=== PATIENT | female | born 1970 | race Caucasian/White ===

== ENCOUNTER 2017-08-26 15:51 | Outpatient (CLI) | payer BC, MEDICARE | END 2017-08-26 15:52 | disposition home or self-care (01) | LOC: BICMAMMO 15:51 | PROVIDERS: ATTEND Family Medicine | DX: Z12.31 Encounter for screening mammogram for malignant neoplasm of breast (principal) | CPT/HCPCS: 77063; 77067 ==

== ENCOUNTER 2018-05-08 16:14 | Emergency (ER) | payer BC, MEDICARE ==
[2018-05-08 18:33] LABS: #Basophils 0.1 thou/uL (0.0-0.2); #Eosinphils 0.2 thou/uL (0.0-0.7); #Lymphocytes 1.6 thou/uL (1.20-3.40); #Monocytes 0.3 thou/uL (0.11-0.59); #Neutrophils 2.4 thou/uL (1.40-6.50); %Basophils 2.2 % (0.0-1.0); %Eosinophils 3.3 % (0.0-10.0); %Lymphocytes 35.4 % (21.0-51.0); %Monocytes 6.5 % (0.0-10.0); %Neutrophils 52.6 % (42.0-75.0); Hemoglobin 15.7 g/dL (12.0-16.0); Mean Corpuscular HGB CONC 33.5 g/dL (32.0-36.0); Mean Corpuscular Volume 95.4 fL (78.0-98.0); Mean Platelet Volume 6.7 fL (7.4-10.4); Platelet Count 210 thou/uL (130-400); RBC Distribution Width 11.7 % (11.5-14.5); White Blood Cell (WBC) Count 4.6 thou/uL (4.8-10.8)
[2018-05-08 18:49] LABS: ALT (SGPT) 63 U/L (8-55); AST (SGOT) 118 U/L (5-34); Albumin 4.5 g/dL (3.5-5.0); Alkaline Phosphatase 97 U/L (40-150); Anion Gap 19 mmol/L (10-20); BUN (Urea Nitrogen) 6 mg/dL (7.0-18.7); Bilirubin, Total 0.7 mg/dL (0.2-1.2); Calc. Creatinine Clearance 0 mL/min (70-130); Calcium 9.3 mg/dL (7.8-10.44); Carbon Dioxide 22 mmol/L (22-29); Chloride 105 mmol/L (98-107); Estimated GFR-MDRD 67; Glucose 90 mg/dL (70-105); Potassium 4.3 mmol/L (3.5-5.1); Protein, Total 7.5 g/dL (6.0-8.3); Sodium 142 mmol/L (136-145)
[2018-05-08] MEDS ORDERED: Dexamethasone 4 mg/ml Vial ONE (19:24)
[2018-05-08] MEDS ORDERED: Ondansetron PF 4 MG/2 ML Vial ONE (19:25)
[2018-05-08] MEDS ORDERED: Ketorolac Tromethamine 30 MG/ML VIAL ONE (19:25)
== END 2018-05-08 20:30 | disposition home or self-care (01) ==
LOC: ERS 16:14
DX: J30.2 Other seasonal allergic rhinitis (principal); M25.50 Pain in unspecified joint; R11.0 Nausea; J45.909 Unspecified asthma, uncomplicated; F41.9 Anxiety disorder, unspecified; Z79.51 Long term (current) use of inhaled steroids
CPT/HCPCS: 80053; 85025; 85652; 86140; 87081; 87430; 96361; 96374; 96375; J1100; J1885; J2405

== ENCOUNTER 2018-05-09 21:57 | Emergency (ER) | payer BC, MEDICARE | END 2018-05-09 22:27 | disposition home or self-care (01) | LOC: ERS 21:57 | DX: J30.9 Allergic rhinitis, unspecified (principal) | CPT/HCPCS: 99281 ==

== ENCOUNTER 2018-05-11 14:12 | Emergency (ER) | payer BC, MEDICARE ==
[2018-05-11] MEDS ORDERED: Ondansetron ODT 4 MG TAB ONE (15:43)
--- NOTE | 2018-05-11 15:47 | CT ---
FCT brain noncontrast: 05/11/2018 HISTORY: 48-year-old female with altered mental status. Acute onset of confusion. FINDINGS: Ventricles are normal in size and configuration. No mass effect, midline shift, extra-axial fluid col lection, acute intra-axial hemorrhage, or acute extra-axial hemorrhage. IMPRESSION: No acute intracranial findings
[2018-05-11 16:32] LABS: ALT (SGPT) 69 U/L (8-55); AST (SGOT) 129 U/L (5-34); Acetaminophen Less than 6.0 mcg/mL (10.0-30.0); Albumin 4.4 g/dL (3.5-5.0); Alcohol 285 mg/dL (Less than 10); Alkaline Phosphatase 87 U/L (40-150); Anion Gap 20 mmol/L (10-20); BUN (Urea Nitrogen) 10 mg/dL (7.0-18.7); Bilirubin, Total 0.6 mg/dL (0.2-1.2); Calc. Creatinine Clearance 0 mL/min (70-130); Calcium 9.6 mg/dL (7.8-10.44); Carbon Dioxide 25 mmol/L (22-29); Chloride 101 mmol/L (98-107); Estimated GFR-MDRD 63; Globulin 2.9 g/dL (2.4-3.5); Glucose 166 mg/dL (70-105); Potassium 3.9 mmol/L (3.5-5.1); Protein, Total 7.3 g/dL (6.0-8.3); Salicylate Less than 8.0 mg/dL (15.0-30.0); Sodium 142 mmol/L (136-145)
[2018-05-11 16:33] LABS: #Lymphocytes 0.5 thou/uL (1.20-3.40); #Monocytes 0.1 thou/uL (0.11-0.59); %Eosinophils 0.2 % (0.0-10.0); %Lymphocytes 13.3 % (21.0-51.0); %Monocytes 3.5 % (0.0-10.0); Hemoglobin 14.4 g/dL (12.0-16.0); Mean Corpuscular HGB CONC 32.6 g/dL (32.0-36.0); Mean Corpuscular Volume 98.1 fL (78.0-98.0); Mean Platelet Volume 7.3 fL (7.4-10.4); Platelet Count 200 thou/uL (130-400); RBC Distribution Width 11.7 % (11.5-14.5); Red Blood Cell (RBC) Count 4.51 mill/uL (4.20-5.40); White Blood Cell (WBC) Count 3.6 thou/uL (4.8-10.8)
== END 2018-05-11 17:22 | disposition home or self-care (01) ==
LOC: ERS 14:12
DX: F10.129 Alcohol abuse with intoxication, unspecified (principal); Q79.6 Ehlers-Danlos syndromes; J45.909 Unspecified asthma, uncomplicated; F41.9 Anxiety disorder, unspecified; Z79.899 Other long term (current) drug therapy
CPT/HCPCS: 70450; 80053; 80307; 85025; 93005; 96360; Q0162

== ENCOUNTER 2018-09-01 12:10 | Outpatient (CLI) | payer BC, MEDICARE ==
--- NOTE | 2018-09-01 13:03 | MMO ---
Bilateral MAMMO Bilat Screen [facility]. CLINICAL HISTORY: Patient is 48 years old and is seen for screening. The patient has the following family history of breast cancer: paternal grandmother. The patient has no personal history of cancer. VIEWS: The views performed were: bilateral craniocaudal with tomosynthesis and bilateral mediolateral oblique with tomosynthesis. FILMS COMPARED: The present examination has been compared to a prior imaging study performed at [facility] on 08/26/2017. MAMMOGRAM FINDINGS: There are scattered fibroglandular densities. Finding 1: There are stable benign appearing calcifications seen in both breasts. Finding 2: There are stable intramammary lymph nodes seen in both breasts. There are no suspicious masses, suspicious calcifications, or new areas of architectural distortion. IMPRESSION: THERE IS NO MAMMOGRAPHIC EVIDENCE OF MALIGNANCY. A ROUTINE FOLLOW-UP MAMMOGRAM IN 1 YEAR IS RECOMMENDED. THE RESULTS OF THIS EXAM WERE SENT TO THE PATIENT. ACR BI-RADS Category 2 - Benign finding MAMMOGRAPHY NOTE: 1. A negative mammogram report should not delay a biopsy if a dominant of clinically suspicious mass is present. 2. Approximately 10% to 15% of breast cancers are not detected by mammography. 3. Adenosis and dense breasts may obscure an underlying neoplasm. Reported by: ETHAN ASHER MD Electonically Signed: [id number]
== END 2018-09-01 12:11 | disposition home or self-care (01) ==
LOC: BICMAMMO 12:10
PROVIDERS: ATTEND Family Medicine
DX: Z12.31 Encounter for screening mammogram for malignant neoplasm of breast (principal)
CPT/HCPCS: 77063; 77067

== ENCOUNTER 2020-07-04 20:14 | Emergency (ER) | payer BC, MEDICARE ==
[~2020-07-04 20:14] MED LIST: Iopamidol-370 76% 500 ML 1 ML ONE
[2020-07-04 22:08] LABS: #Basophils 0.1 thou/uL (0.0-0.2); #Eosinphils 0.1 thou/uL (0.0-0.7); #Lymphocytes 2.4 thou/uL (1.20-3.40); #Monocytes 0.5 thou/uL (0.11-0.59); #Neutrophils 6.5 thou/uL (1.40-6.50); %Basophils 0.8 % (0.0-1.0); %Eosinophils 1.4 % (0.0-10.0); %Lymphocytes 24.6 % (21.0-51.0); %Monocytes 5.5 % (0.0-10.0); %Neutrophils 67.7 % (42.0-75.0); Hemoglobin 15.2 g/dL (12.0-16.0); Mean Corpuscular HGB CONC 34.1 g/dL (32.0-36.0); Mean Corpuscular Hemoglobin 30.2 pg (27.0-31.0); Mean Corpuscular Volume 88.7 fL (78.0-98.0); Platelet Count 336 thou/uL (130-400); RBC Distribution Width 12.1 % (11.5-14.5); Red Blood Cell (RBC) Count 5.02 mill/uL (4.20-5.40); White Blood Cell (WBC) Count 9.6 thou/uL (4.8-10.8)
[2020-07-04 22:09] LABS: ALT (SGPT) 20 U/L (8-55); AST (SGOT) 20 U/L (5-34); Albumin 4.4 g/dL (3.5-5.0); Alkaline Phosphatase 127 U/L (40-110); Anion Gap 21 mmol/L (10-20); BUN (Urea Nitrogen) 8 mg/dL (9.8-20.1); Bilirubin, Total 0.4 mg/dL (0.2-1.2); CK (CPK) 49 U/L (29-168); Calc. Creatinine Clearance 0 mL/min (70-130); Carbon Dioxide 19 mmol/L (22-29); Chloride 104 mmol/L (98-107); Glucose 107 mg/dL (70-105); Magnesium 1.8 mg/dL (1.6-2.6); Potassium 3.5 mmol/L (3.5-5.1); Protein, Total 7.4 g/dL (6.0-8.3); Sodium 140 mmol/L (136-145)
[2020-07-04] MEDS ORDERED: Ondansetron PF 4 MG/2 ML Vial ONE (23:53)
== END 2020-07-05 00:04 | disposition home or self-care (01) ==
LOC: ERS 20:14
DX: R00.2 Palpitations (principal); J45.909 Unspecified asthma, uncomplicated; Q79.60 Ehlers-Danlos syndrome, unspecified; Z87.891 Personal history of nicotine dependence; Z79.899 Other long term (current) drug therapy
CPT/HCPCS: 36415; 71275; 80053; 82550; 83735; 84443; 84484; 85025; 93005; 96374; J2405; Q9967